=== PATIENT | male | born 1995 | race Caucasian/White ===

== ENCOUNTER 2016-06-30 09:46 | Emergency (ER) | payer OTHER ==
[~2016-06-30] VITALS: Ht 182.9 cm; Wt 86.0 kg
[2016-06-30 09:49] VITALS: BP 140/90; PULSE 69; RESP 16; TEMP 98.9; O2SAT 99
--- NOTE | 2016-06-30 10:09 | PD ---
HPI Chief Complaint: Injury Time Seen by Provider: 10:04 Travel History International Travel<30 days: No Contact w/Intl Traveler<30days: No Traveled to known affect area: No History of Present Illness HPI This is a 20-year-old male who presents to the emergency department having hit his hand in a door. He reports severe right hand pain worse near his pinky, constant, worse with movement, associated with swelling of his hand. He denies any other injuries. He denies any numbness or weakness. PFSH Past Medical History Medical History: Denies Significant Hx Diminished Hearing: No Respiratory: Yes (asthma) Tetanus Vaccination: Unknown Influenza Vaccination: No ?: Not Past Surgical History Surgical History: No Previous Surgery Social History Alcohol Use: Yes (occ) Tobacco Use: No Substance Use: No Allergies-Medications (Allergen,Severity, Reaction): Coded Allergies: No Known Allergies (Unverified , 06/30/16) Reported Meds & Prescriptions Reported Meds & Active Scripts Active No Active Prescriptions or Reported Medications Review of Systems General / Constitutional: No: Fever, Chills Gastrointestinal: No: Nausea, Vomiting Physical Exam Narrative GENERAL: Well-appearing, no acute distress, nontoxic SKIN: Hematoma over the dorsal aspect of the right hand proximal to the fourth and fifth digits HEAD: Atraumatic. Normocephalic. ENT: No nasal bleeding or discharge. Moist mucous membranes MUSCULOSKELETAL: Tender to palpation along the dorsal aspect of the fourth and fifth metacarpals Vascular: Normal capillary refill in the fourth and fifth digits NEUROLOGICAL: Awake and alert. No obvious cranial nerve deficits. Sensation and motor intact in the median, ulnar and radial distributions of the right hand. PSYCHIATRIC: Appropriate mood and affect; insight and judgment normal. Data Data Last Documented VS Vital Signs Date Time Temp Pulse Resp B/P Pulse Ox O2 Delivery O2 Flow Rate FiO2 06/30/16 10:06 17 06/30/16 09:49 98.9 69 140/90 99 Room Air Orders Hand, Complete ([id number]) (06/30/16 ) Ibuprofen (Motrin) (06/30/16 10:15) MDM Medical Decision Making Medical Screen Exam Complete: Yes Emergency Medical Condition: Yes Interpretation(s) xray: mildly angulated fracture of the fifth metacarpal with soft tissue swelling Differential Diagnosis Metacarpal fracture, hematoma, contusion Narrative Course This is a 20-year-old male who presents to the emergency department having slammed his hand in a door. He has a hematoma on the dorsal aspect of the left hand with a normal neurovascular exam. X-ray was obtained which demonstrates a fracture of the left fifth metacarpal shaft. Patient was placed in a splint and given information for hand surgery follow-up. Diagnosis Primary Impression: Fracture of fifth metacarpal bone Qualified Code: S62.356A - Closed nondisplaced fracture of shaft of fifth metacarpal bone of right hand, initial encounter Patient Instructions: General Instructions Additional Instructions: If you develop numbness, coolness, weakness or severe pain of your right hand return to the emergency department. Follow-up with a hand surgeon. Med/Other Pt SpecificInfo: No Change to Meds Scripts No Active Prescriptions or Reported Meds Disposition: 01 DISCHARGE HOME Condition: Stable Stefania Joyce MD Jun 30, 2016 10:09
[2016-06-30] MEDS ORDERED: IBUPROFEN 600 MG TAB PO ONE (10:15)
--- NOTE | 2016-06-30 10:24 | RADRPT ---
EXAM DATE/TIME: 06/30/2016 10:23 [facility] COMPARISON: No previous studies available for comparison. INDICATIONS : Right hand pain, smashed in door. MEDICAL HISTORY : None. SURGICAL HISTORY : None. ENCOUNTER: Initial ACUITY: 1 day PAIN SCORE: 7/10 LOCATION: Right fifth digit. FINDINGS: There is a comminuted fractured fifth metacarpal shaft identified. Normal bone density. Joint space w idths are intact. There is mild volar angulation of the distal fracture fragment and overlying soft t issue swelling. CONCLUSION: Mildly angulated fracture of the fifth metacarpal. Overlying soft tissue swelling. Mainor Woody MD on June 30, 2016 at 10:22 Board Certified Radiologist. This report was verified electronically.
[2016-06-30 11:24] VITALS: RESP 18
== END 2016-06-30 11:35 | disposition home or self-care (01) ==
LOC: NEPD 09:46
DX: S62.356A Nondisplaced fracture of shaft of fifth metacarpal bone, right hand, initial encounter for closed fracture (principal); W23.0XXA Caught, crushed, jammed, or pinched between moving objects, initial encounter
CPT/HCPCS: 29125; 73130